=== PATIENT | male | born 1970 | race Two or more races ===

== ENCOUNTER 2020-06-29 14:18 | Emergency (ER) | payer SELFPAY ==
[~2020-06-29] VITALS: Ht 167.6 cm; Wt 68.0 kg
[2020-06-29 14:23] VITALS: BP 115/76
[2020-06-29] MEDS ORDERED: SULFAMETH/TRIMETH 800/160 MG 1 UDTAB TABLET PO ONE (15:00)
[2020-06-29] MEDS ORDERED: CEPHALEXIN MONOHYDRATE 500 MG CAPSULE PO ONE ×2 (15:00→15:50)
[2020-06-29] MEDS ORDERED: SULFAMETH/TRIMETH 800/160 MG 1 UDTAB TABLET ONE (15:51)
--- NOTE | 2020-06-29 16:01 | NUR ---
Patient discharged to home in stable condition. Written and verbal after care instructions given. Patient verbalizes understanding of instruction.
== END 2020-06-29 16:02 | disposition home or self-care (01) ==
LOC: ER 14:19
DX: R10.2 Pelvic and perineal pain (principal); Z59.0 Homelessness